=== PATIENT | female | born 1955 | race Caucasian/White ===

== ENCOUNTER 2018-02-25 17:08 | Emergency (ER) | payer MEDICAID, OTHER ==
[2018-02-25] MEDS: IBUPROFEN 600 MG TAB PO (18:49)
[2018-02-25] MEDS: BUPIVACAINE 0.25% (MPF) 10 ML 10 ML VIAL INJ (19:16)
[2018-02-25] MEDS: LIDOCAINE 1% (MDV) 20 ML INJ SC (19:17)
[2018-02-25] MEDS: BUPIVACAINE 0.25% (MPF) 30 ML INJ INJ (19:18)
[2018-02-25] MEDS: LIDOCAINE 1% (MDV) 50 ML INJ SC (19:18)
[2018-02-25] MEDS ORDERED: BUPIVACAINE 0.25%/EPI (SDV) 30 ML INJ INJ (19:30)
== END 2018-02-25 20:20 | disposition home or self-care (01) ==
LOC: E/R 17:08 → FTE 20:20
DX: S63.281A Dislocation of proximal interphalangeal joint of left index finger, initial encounter (principal); I10 Essential (primary) hypertension; W18.39XA Other fall on same level, initial encounter; Y92.9 Unspecified place or not applicable
CPT/HCPCS: 26770; 73140; 99283-25

== ENCOUNTER 2018-04-22 17:44 | Observation (INO) | payer MEDICAID ==
[2018-04-22 21:14] LABS: ADD MAN DIFF? NO
[2018-04-22] MEDS: NITROGLYCERIN 2% 1 GM OINT PKT TD (21:22)
[2018-04-22] MEDS: ASPIRIN 81 MG TAB PO (21:22)
[2018-04-22] MEDS: NITROGLYCERIN (SL) 0.4 MG TAB SL (21:22)
[2018-04-22 21:29] LABS: BASOPHILS % 0.4 % (0.0-2.0); EOSINOPHILS # 0.3 10^3/ul (0.0-0.5); EOSINOPHILS % 2.6 % (0.0-7.0); HEMATOCRIT 36.6 % (37.0-47.0); HEMOGLOBIN 12.6 g/dl (12.0-16.0); LYMPHOCYTES % 41.4 % (15.0-51.0); MEAN CORPUSCULAR HEMOGLOBIN 34.2 pg (29.0-33.0); MEAN CORPUSCULAR HGB CONC 34.4 g/dl (32.0-37.0); MEAN CORPUSCULAR VOLUME 99.5 fl (82.0-101.0); MEAN PLATELET VOLUME 9.1 fl (7.4-10.4); MONOCYTE # 0.9 10^3/ul (0.3-0.9); MONOCYTES % 9.4 % (0.0-11.0); NEUTROPHIL # 4.4 10^3/ul (1.6-7.5); NEUTROPHILS % 45.8 % (39.0-77.0); PLATELET COUNT 293 10^3/UL (140-415); RED BLOOD COUNT 3.68 10^6/ul (4.20-5.40); RED CELL DISTRIBUTION WIDTH 12.1 % (11.5-14.5)
[2018-04-22 21:29] LABS: WHITE BLOOD COUNT 9.6 10^3/ul (4.8-10.8)
[2018-04-22 21:46] LABS: ANION GAP 12 (8-16); BLOOD UREA NITROGEN 18 mg/dl (7-20); CALCIUM 9.3 mg/dl (8.4-10.2); CARBON DIOXIDE 28 mmol/L (21-31); CHLORIDE 103 mmol/L (97-110); GLUCOSE 105 mg/dl (70-220); POTASSIUM 4.1 mmol/L (3.5-5.1); SODIUM 139 mmol/L (135-144)
[2018-04-22 21:56] LABS: TROPONIN-I < 0.010 ng/ml (0.000-0.120)
[2018-04-22] MEDS ORDERED: ACETAMINOPHEN 325 MG TAB PO (22:30)
[2018-04-22] MEDS ORDERED: ONDANSETRON 4 MG INJ IV (22:30)
[2018-04-23 01:39] LABS: CREATINE KINASE 107 IU/L (23-200)
[2018-04-23 01:52] LABS: CK INDEX 0.7; CK-MB 0.79 ng/ml (0.0-2.4); TROPONIN-I < 0.010 ng/ml (0.000-0.120)
[2018-04-23] MEDS ORDERED: ALBUTEROL/IPRATROPIUM (NEB) 3 ML AMP HHN (04:00)
[2018-04-23] MEDS ORDERED: ONDANSETRON 4 MG INJ IV (04:00)
[2018-04-23] MEDS ORDERED: NACL 0.9% 3 ML SYG IV (04:00)
[2018-04-23] MEDS ORDERED: ACETAMINOPHEN 325 MG TAB PO (04:00)
[2018-04-23] MEDS: ASPIRIN (EC) 81 MG TAB PO (08:24)
[2018-04-23] MEDS: LISINOPRIL 20 MG TAB PO (08:24)
[2018-04-23] MEDS: HEPARIN 5,000 UNIT/0.5 ML VIAL SC ×2 (08:25→21:44)
[2018-04-23 09:12] LABS: ADD MAN DIFF? NO
[2018-04-23 09:22] LABS: WHITE BLOOD COUNT 7.9 10^3/ul (4.8-10.8)
[2018-04-23 09:22] LABS: BASOPHIL # 0.1 10^3/ul (0.0-0.1); BASOPHILS % 0.6 % (0.0-2.0); EOSINOPHILS # 0.2 10^3/ul (0.0-0.5); HEMATOCRIT 36.7 % (37.0-47.0); HEMOGLOBIN 12.1 g/dl (12.0-16.0); LYMPHOCYTES # 2.5 10^3/ul (0.8-2.9); LYMPHOCYTES % 31.6 % (15.0-51.0); MEAN CORPUSCULAR HEMOGLOBIN 32.7 pg (29.0-33.0); MEAN CORPUSCULAR VOLUME 99.2 fl (82.0-101.0); MEAN PLATELET VOLUME 9.4 fl (7.4-10.4); MONOCYTE # 0.6 10^3/ul (0.3-0.9); MONOCYTES % 7.7 % (0.0-11.0); NEUTROPHIL # 4.6 10^3/ul (1.6-7.5); NEUTROPHILS % 57.7 % (39.0-77.0); PLATELET COUNT 281 10^3/UL (140-415); RED CELL DISTRIBUTION WIDTH 12.4 % (11.5-14.5)
[2018-04-23 09:28] LABS: HEMOGLOBIN A1C 5.9 % (0-5.9)
[2018-04-23 09:40] LABS: ALANINE AMINOTRANSFERASE 30 IU/L (13-69); ALBUMIN 4.4 g/dl (3.3-4.9); ALBUMIN/GLOBULIN RATIO 1.33; ALKALINE PHOSPHATASE 98 IU/L (42-121); ANION GAP 11 (8-16); ASPARTATE AMINO TRANSFERASE 34 IU/L (15-46); BILIRUBIN,INDIRECT 0.9 mg/dl (0-1.1); BILIRUBIN,TOTAL 0.9 mg/dl (0.2-1.3); BLOOD UREA NITROGEN 13 mg/dl (7-20); CALCIUM 9.3 mg/dl (8.4-10.2); CARBON DIOXIDE 31 mmol/L (21-31); CHLORIDE 102 mmol/L (97-110); CHOL/HDL RATIO 3.4 RATIO; CHOLESTEROL 151 mg/dl (100-200); CREATININE 0.57 mg/dl (0.44-1.00); GLUCOSE 118 mg/dl (70-220); HDL CHOLESTEROL 44 mg/dl (35-98); LDL CHOLESTEROL,CALCULATED 73 mg/dl; MAGNESIUM 2.1 mg/dl (1.7-2.5); POTASSIUM 4.3 mmol/L (3.5-5.1); SODIUM 140 mmol/L (135-144); TOTAL PROTEIN 7.7 g/dl (6.1-8.1); TRIGLYCERIDES 172 mg/dl (0-149)
[2018-04-23 09:56] LABS: CREATINE KINASE 88 IU/L (23-200)
[2018-04-23 10:09] LABS: CK-MB 0.86 ng/ml (0.0-2.4); TROPONIN-I < 0.010 ng/ml (0.000-0.120)
[2018-04-23] MEDS: ATORVASTATIN 80 MG TAB PO (21:39)
[2018-04-24 07:10] LABS: WHITE BLOOD COUNT 7.4 10^3/ul (4.8-10.8)
[2018-04-24 07:10] LABS: ADD MAN DIFF? NO; BASOPHIL # 0.1 10^3/ul (0.0-0.1); BASOPHILS % 0.7 % (0.0-2.0); EOSINOPHILS # 0.2 10^3/ul (0.0-0.5); EOSINOPHILS % 2.7 % (0.0-7.0); HEMATOCRIT 37.2 % (37.0-47.0); HEMOGLOBIN 12.6 g/dl (12.0-16.0); LYMPHOCYTES # 2.6 10^3/ul (0.8-2.9); LYMPHOCYTES % 34.7 % (15.0-51.0); MEAN CORPUSCULAR HEMOGLOBIN 33.9 pg (29.0-33.0); MEAN CORPUSCULAR HGB CONC 33.9 g/dl (32.0-37.0); MEAN PLATELET VOLUME 8.9 fl (7.4-10.4); MONOCYTE # 0.7 10^3/ul (0.3-0.9); MONOCYTES % 8.8 % (0.0-11.0); NEUTROPHIL # 3.9 10^3/ul (1.6-7.5); NEUTROPHILS % 52.7 % (39.0-77.0); PLATELET COUNT 285 10^3/UL (140-415); RED BLOOD COUNT 3.72 10^6/ul (4.20-5.40); RED CELL DISTRIBUTION WIDTH 12.1 % (11.5-14.5)
[2018-04-24 08:16] LABS: ANION GAP 12 (8-16); BLOOD UREA NITROGEN 14 mg/dl (7-20); CALCIUM 9.2 mg/dl (8.4-10.2); CARBON DIOXIDE 29 mmol/L (21-31); CHLORIDE 104 mmol/L (97-110); CREATININE 0.64 mg/dl (0.44-1.00); GLUCOSE 95 mg/dl (70-220); MAGNESIUM 2.2 mg/dl (1.7-2.5); PHOSPHORUS 4.2 mg/dl (2.5-4.9); POTASSIUM 4.5 mmol/L (3.5-5.1); SODIUM 140 mmol/L (135-144)
[2018-04-24] MEDS: HEPARIN 5,000 UNIT/0.5 ML VIAL SC (08:39)
[2018-04-24] MEDS: LISINOPRIL 20 MG TAB PO (08:42)
[2018-04-24] MEDS: ASPIRIN (EC) 81 MG TAB PO (08:42)
== END 2018-04-24 13:24 | disposition home or self-care (01) ==
LOC: MS4 22:05 → E/R 17:44
DX: R07.89 Other chest pain (principal); I10 Essential (primary) hypertension; E78.5 Hyperlipidemia, unspecified; E11.9 Type 2 diabetes mellitus without complications; E78.00 Pure hypercholesterolemia, unspecified; Z79.82 Long term (current) use of aspirin; Z82.49 Family history of ischemic heart disease and other diseases of the circulatory system
CPT/HCPCS: 36415; 71045; 80048; 80053; 80061; 82550; 82553; 83036; 83735; 84100; 84443; 84484; 85025; 93005; 93306; 99285-25; G0378

== ENCOUNTER 2019-05-03 09:09 | Emergency (ER) | payer MEDICAID ==
[2019-05-03 10:27] LABS: ADD MAN DIFF? NO
[2019-05-03 10:28] LABS: BASOPHILS % 0.6 % (0.0-2.0); EOSINOPHILS # 0.1 10^3/ul (0.0-0.5); EOSINOPHILS % 1.6 % (0.0-7.0); HEMATOCRIT 36.5 % (37.0-47.0); HEMOGLOBIN 12.6 g/dl (12.0-16.0); LYMPHOCYTES # 2.2 10^3/ul (0.8-2.9); LYMPHOCYTES % 32.7 % (15.0-51.0); MEAN CORPUSCULAR HEMOGLOBIN 33.6 pg (29.0-33.0); MEAN CORPUSCULAR HGB CONC 34.5 g/dl (32.0-37.0); MEAN CORPUSCULAR VOLUME 97.3 fl (82.0-101.0); MEAN PLATELET VOLUME 9.1 fl (7.4-10.4); MONOCYTE # 0.7 10^3/ul (0.3-0.9); MONOCYTES % 9.9 % (0.0-11.0); NEUTROPHIL # 3.7 10^3/ul (1.6-7.5); NEUTROPHILS % 54.9 % (39.0-77.0); PLATELET COUNT 274 10^3/UL (140-415); RED BLOOD COUNT 3.75 10^6/ul (4.20-5.40); RED CELL DISTRIBUTION WIDTH 12.1 % (11.5-14.5)
[2019-05-03 10:28] LABS: WHITE BLOOD COUNT 6.7 10^3/ul (4.8-10.8)
[2019-05-03 10:44] LABS: ANION GAP 6 (5-13); BLOOD UREA NITROGEN 13 mg/dl (7-20); CALCIUM 9.7 mg/dl (8.4-10.2); CARBON DIOXIDE 30 mmol/L (21-31); CHLORIDE 103 mmol/L (97-110); CREATININE 0.57 mg/dl (0.44-1.00); Estimated GFR > 60 mL/min (>60); GLUCOSE 104 mg/dl (70-220); POTASSIUM 3.9 mmol/L (3.5-5.1); SODIUM 139 mmol/L (135-144)
[2019-05-03 10:56] LABS: TROPONIN-I < 0.012 ng/ml (0.000-0.120)
== END 2019-05-03 11:20 | disposition home or self-care (01) ==
LOC: E/R 09:09
DX: R07.9 Chest pain, unspecified (principal); I10 Essential (primary) hypertension; Z79.82 Long term (current) use of aspirin
CPT/HCPCS: 36415; 80048; 84484; 85025; 93005; 99284-25